=== PATIENT | female | born 1970 | race Caucasian/White ===

== ENCOUNTER 2017-01-30 15:11 | Emergency (ER) | payer OTHER ==
--- NOTE | 2017-01-30 17:54 | DIAGNOSTIC IMAGING REPORT ---
PROCEDURE: CT ABD/PELVIS WITH CONTRAST CLINICAL INDICATION: Right lower quadrant pain. Initial encounter. TECHNIQUE: 100 ml of Isovue 300 were injected intravenously and axial images were obtained of the entire abdomen and pelvis with sagittal and coronal reformations. COMPARISON: None. FINDINGS: ABDOMEN: 3 mm peripheral nodule in each lower lobe. Heart size is normal. Enlarged liver (26 cm) with diffuse steatosis. Gallbladder, pancreas, spleen, adrenal glands and kidneys are unremarkable. Normal abdominal aorta. Mid small bowel 9 mm lipoma. Nonspecific bowel gas pattern. PELVIS: Normal appendix. Mild sigmoid diverticulosis. Uterus, adnexa and bladder are normal. No pelvic mass, inflammatory changes or free fluid. Mild degenerative changes of the spine. IMPRESSION: 1. Normal appendix 2. Hepatomegaly and steatosis 3. Mid small bowel lipoma 4. Mild sigmoid diverticulosis 5. Results discussed with RALF Guerrero All CT scans at this facility use dose modulation, iterative reconstruction, and/or weight-based dosing when appropriate to reduce radiation dose to as low as reasonably achievable.
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
--- NOTE | 2017-01-30 18:02 | ED ORDER SUMMARY ---
..... Patient: ELIZABETH SAENZ OrderSheet [facility] VisitID: [id number] [address] [place] [address] 46y, F Registration Date/Time: 01/30/2017 ORDER SHEET Weight: 99.7 kg (stated) Allergies: Penicillin, Sulfa Antibiotics GENERAL ORDERS: CBC w Diff Urgent (15:40 01/30/2017 EKoroleva P.A.-C) (Ack 15:42 KHoerner) (16:09 EHassan R.N.) CMP Urgent (15:40 01/30/2017 EKoroleva P.A.-C) (Ack 15:42 KHoerner) (16:09 EHassan R.N.) UA-Culture if indicated Urgent (15:40 01/30/2017 EKoroleva P.A.-C) (Ack 15:42 KHoerner) (16:09 EHassan R.N.) Lipase Urgent (15:40 01/30/2017 EKoroleva P.A.-C) (Ack 15:42 KHoerner) (16:09 EHassan R.N.) Urine Urgent (15:40 01/30/2017 EKoroleva P.A.-C) (Ack 15:42 KHoerner) (16:09 EHassan R.N.) CT Abd/Pel w Cont (Yes) (N/A) Urgent (17:23 01/30/2017 EKoroleva P.A.-C) (17:34 DMaziarka R.N.) MEDICATION ORDERS: Insulin Reg Subcut 4 units (HIGH ALERT MEDICATION, NOW) (17:57 01/30/2017 EKoroleva P.A.-C) (18:24 EHassan R.N.) IV FLUIDS: IV NS : initial bolus 1000 mL (1000 mL/hr), then 1000 mL/hr for X1 (NOW); Asa (15:38 01/30/2017 EKoroleva P.A.-C) (16:09 EHassan R.N.) Dilaudid IV 0.5 mg (may repeat in 10 mins if pain persists order is for 1 mg) (15:39 01/30/2017 Mikhail Bella) (16:09 Harshil Glover) ORDER SHEET NOTES: [Electronically signed by Lorna Steven P.A.-C (18:17 01/30/2017)] [Electronically signed by Danette Cheema R.N. (18:27 01/30/2017)] [Electronically locked/signed by Danette Cheema R.N. (18:27 01/30/2017)]
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
--- NOTE | 2017-01-30 18:02 | ED ORDER SUMMARY ---
..... Patient: ELIZABETH SAENZ OrderSheet [facility] VisitID: [id number] [address] [place] [address] 46y, F Registration Date/Time: 01/30/2017 ORDER SHEET Weight: 99.7 kg (stated) Allergies: Penicillin, Sulfa Antibiotics GENERAL ORDERS: CBC w Diff Urgent (15:40 01/30/2017 EKoroleva P.A.-C) (Ack 15:42 KHoerner) (16:09 EHassan R.N.) CMP Urgent (15:40 01/30/2017 EKoroleva P.A.-C) (Ack 15:42 KHoerner) (16:09 EHassan R.N.) UA-Culture if indicated Urgent (15:40 01/30/2017 EKoroleva P.A.-C) (Ack 15:42 KHoerner) (16:09 EHassan R.N.) Lipase Urgent (15:40 01/30/2017 EKoroleva P.A.-C) (Ack 15:42 KHoerner) (16:09 EHassan R.N.) Urine Urgent (15:40 01/30/2017 EKoroleva P.A.-C) (Ack 15:42 KHoerner) (16:09 EHassan R.N.) CT Abd/Pel w Cont (Yes) (N/A) Urgent (17:23 01/30/2017 EKoroleva P.A.-C) (17:34 DMaziarka R.N.) MEDICATION ORDERS: Insulin Reg Subcut 4 units (HIGH ALERT MEDICATION, NOW) (17:57 01/30/2017 EKoroleva P.A.-C) (18:24 EHassan R.N.) IV FLUIDS: IV NS : initial bolus 1000 mL (1000 mL/hr), then 1000 mL/hr for X1 (NOW); Asa (15:38 01/30/2017 EKoroleva P.A.-C) (16:09 EHassan R.N.) Dilaudid IV 0.5 mg (may repeat in 10 mins if pain persists order is for 1 mg) (15:39 01/30/2017 Mikhail Bella) (16:09 Harshil Glover) ORDER SHEET NOTES: [Electronically signed by Lorna Steven P.A.-C (18:17 01/30/2017)] [Electronically signed by Danette Cheema R.N. (18:27 01/30/2017)] [Electronically locked/signed by Danette Cheema R.N. (18:27 01/30/2017)]
--- NOTE | 2017-01-30 18:28 | ED DISCHARGE INSTRUCTIONS ---
Patient: ELIZABETH SAENZ General Instructions [facility] VisitID: [id number] [place] [address] 46y, F Registration Date/Time: 01/30/2017 Type 2 diabetes with hyperglycemia. No diabetic ketoacidosis or retinopathy, neuropathy, dermopathy or nephropathy. New onset type 2 diabetes with hyperglycemia. No coma. INSTRUCTIONS Rest. Drink plenty of fluids. Prescription Medications: Metformin 500 mg: Take 1 orally every 12 hours. Dispense thirty (30). No refills. (start on the 12th) OTC Medications: Take acetaminophen (Tylenol, Datril, etc.) and ibuprofen (Advil, Nuprin, etc.) according to label instructions. Available over the counter. Follow-up: Follow up with your doctor in three days. Understanding of the discharge instructions verbalized by patient. ADDITIONAL INFORMATION Diabetes with High Blood Sugar You have been treated for high blood sugar (hyperglycemia). This may be becauseof an infection or other illness;eating too many sweets or starches ; not taking enough insulin. Home care High blood sugar may cause symptoms that you can learn to recognize, such as these: If you feel like your blood sugar may be too high, measure it using a blood or urine test. If it is above your usual range, use the "sliding scale"rRegular insulin dose your doctor gave you to correct this. If no "sliding scale" orders were given, contact your doctor for further advice. If your blood sugar is over 300, and you can't reach your doctor, go to the hospital emergency room. Monitor and write down your blood sugars - and insulin dose, if you take insulin - atleast twice a day. Do this before breakfast and before dinner. Do this for the next 3 to 5 days. Follow-up care Follow up with your health care provderduring the next week to review your blood sugar records. You will find out if you need to adjust your dose of insulin or other medicine for blood sugar. When to seek medical care Get prompt medical attention if either of these occur: High blood sugar.Symptoms are frequent urination, feeling dizzy, thirst, headache, nausea or vomiting, abdominal pain, and drowsiness or loss of consciousness. Low blood sugar. Symptoms are fatigue, headache, shakes, excess sweating, hunger, anxiety, reduced vision, drowsiness, weakness, confusion or loss of consciousness, and seizure. Diabetes (General Information) Cells of the body need glucose (sugar) for fuel. Insulin is the hormone in the body that lets glucose move from the blood into the cells. Diabetes is a chronic health condition where the body is not able to produce enough insulin, or does not respond well to its own insulin. Because the glucose in the blood cannot get into the cells, it builds up in the blood causing high blood sugar (hyperglycemia). Your actual blood sugar level is a result of the balance between several factors. These include what kind of food you eat and how much of it you eat, how much exercise you get, and the amount of insulin present in your body. Eating too much of the wrong kinds of food or not taking diabetes medicine on time can cause high blood sugar. Infections can cause high blood sugar even if you are taking medicines correctly. Missing meals, not eating enough food, or taking too much diabetes medicine can lead to low blood sugar. Untreated over long periods of time, diabetes can cause serious problems such as heart disease, stroke, kidney failure, blindness, nerve pain or loss of feeling in the legs and feet, and gangrene of the feet. With good treatment keeping your blood sugar under control, you can prevent or delay the complications of diabetes. Normal blood sugar levels are 70-130 one to two hours before a meal and not more than 180 two hours after a meal. Home Care: Follow your prescribed diabetic diet and take insulin or oral diabetic medicine exactly as ordered. Monitor blood sugars as advised. Keep a log of your results. This will help your doctor adjust your medicines to keep your blood sugar under control. Try to achieve your ideal weight. Proper diet and exercise can reduce or eliminate the need to take diabetes medicine. Avoid tobacco smoking, which worsens the effect of diabetes on your circulation. The risk of a heart attack in a diabetic is 15 times more likely if you smoke. Pay attention to good foot care. If you have lost feeling in your feet you may not notice an injury or infection. Check your feet and between your toes at least once a week. Wear a medical alert bracelet or carry a card in your wallet explaining that you are diabetic. In the event that you become very ill and are unable to give this information, it will help medical personnel provide proper care. If you become sick with a cold, the flu, or an infection (viral or bacterial), please do the following: Review your diabetes sick plan and contact your physician as instructed. You may have been advised to call the doctor immediately if: Your blood sugar is above 240 while taking your diabetes medication Your urine ketone levels are above normal or showing high levels of ketones You have been vomiting more than 6 hours You experience difficulty to trouble breathing You develop a high fever or you have had a fever for a couple of days and you aren't getting better You become light-headed and more sleepy than usual Keep taking your oral diabetes medicine (pills) even if you have been vomiting and feeling sick. Contact your doctor immediately for advice because you may need insulin to lower your blood sugar until you recover from your illness. Keep taking your insulin, even if you have been vomiting and feeling sick. Call your doctor immediately and ask if a temporary adjustment of your insulin dose is needed based on your blood glucose (sugar) results. Check your blood sugar every 2 to 4 hours, or at least 4 times a day. Check your keytones often. If you are vomiting and having diarrhea, monitor them more frequently. Don't skip meals. Try to eat small meals on a regular schedule, even if you do not have an appetite. Drink water or other calorie-free, non-caffeinated liquids to stay hydrated. If you are nauseated or vomiting, drink small amounts (sips, a teaspoon) every 5 minutes. To prevent dehydration, try to drink a cup or 8 ounces of fluids every hour while you are awake. Always carry a source of fast-acting sugar with you in case you get symptoms of low blood sugar (below 70). At the first sign of low blood sugar, eat or drink 15 to 20 grams of fast-acting sugar to raise your blood sugar. Examples include: 3 to 4 glucose tablets (found at most drugstores) 4 ounces (1/2 cup) of regular (not diet) softdrinks 4 ounces (1/2 cup) of any fruit juice 8 ounces (1 cup) of milk 5 to 6 pieces of hard candy 1 tablespoon of honey Check your blood sugar 15 minutes after treating yourself. If it is still low (below 70), take another 15 to 20 grams of fast-acting sugar. Test again in 15 minutes. If it returns to normal (70 or above), eat a snack or meal to keep your blood sugar in a safe range. If it remains low, call your doctor or go to an emergency room. Follow Up with your doctor as advised by our staff. For more information, contact the [employer]. www.diabetes.org or 127-730-4098. Get Prompt Medical Attention if any of the following occur: HIGH BLOOD SUGAR: frequent urination, dizziness, drowsiness, thirst, headache, nausea or vomiting, abdominal pain, vision changes, fast breathing, confusion or loss of consciousness LOW BLOOD SUGAR: fatigue, headache, shakes, excess sweating, hunger, feeling anxious or restless, vision changes, drowsiness, weakness, confusion or loss of consciousness Chest pain or shortness of breath Dizziness or fainting Weakness of an arm or leg or one side of the face Trouble with speech or vision Diabetes with High Blood Sugar You have been treated for high blood sugar (hyperglycemia). This may be becauseof an infection or other illness;eating too many sweets or starches ; not taking enough insulin. Home care High blood sugar may cause symptoms that you can learn to recognize, such as these: If you feel like your blood sugar may be too high, measure it using a blood or urine test. If it is above your usual range, use the "sliding scale"rRegular insulin dose your doctor gave you to correct this. If no "sliding scale" orders were given, contact your doctor for further advice. If your blood sugar is over 300, and you can't reach your doctor, go to the hospital emergency room. Monitor and write down your blood sugars - and insulin dose, if you take insulin - atleast twice a day. Do this before breakfast and before dinner. Do this for the next 3 to 5 days. Follow-up care Follow up with your health care [facility] the next week to review your blood sugar records. You will find out if you need to adjust your dose of insulin or other medicine for blood sugar. When to seek medical care Get prompt medical attention if either of these occur: High blood sugar.Symptoms are frequent urination, feeling dizzy, thirst, headache, nausea or vomiting, abdominal pain, and drowsiness or loss of consciousness. Low blood sugar. Symptoms are fatigue, headache, shakes, excess sweating, hunger, anxiety, reduced vision, drowsiness, weakness, confusion or loss of consciousness, and seizure. Diabetes (General Information) Cells of the body need glucose (sugar) for fuel. Insulin is the hormone in the body that lets glucose move from the blood into the cells. Diabetes is a chronic health condition where the body is not able to produce enough insulin, or does not respond well to its own insulin. Because the glucose in the blood cannot get into the cells, it builds up in the blood causing high blood sugar (hyperglycemia). Your actual blood sugar level is a result of the balance between several factors. These include what kind of food you eat and how much of it you eat, how much exercise you get, and the amount of insulin present in your body. Eating too much of the wrong kinds of food or not taking diabetes medicine on time can cause high blood sugar. Infections can cause high blood sugar even if you are taking medicines correctly. Missing meals, not eating enough food, or taking too much diabetes medicine can lead to low blood sugar. Untreated over long periods of time, diabetes can cause serious problems such as heart disease, stroke, kidney failure, blindness, nerve pain or loss of feeling in the legs and feet, and gangrene of the feet. With good treatment keeping your blood sugar under control, you can prevent or delay the complications of diabetes. Normal blood sugar levels are 70-130 one to two hours before a meal and not more than 180 two hours after a meal. Home Care: Follow your prescribed diabetic diet and take insulin or oral diabetic medicine exactly as ordered. Monitor blood sugars as advised. Keep a log of your results. This will help your doctor adjust your medicines to keep your blood sugar under control. Try to achieve your ideal weight. Proper diet and exercise can reduce or eliminate the need to take diabetes medicine. Avoid tobacco smoking, which worsens the effect of diabetes on your circulation. The risk of a heart attack in a diabetic is 15 times more likely if you smoke. Pay attention to good foot care. If you have lost feeling in your feet you may not notice an injury or infection. Check your feet and between your toes at least once a week. Wear a medical alert bracelet or carry a card in your wallet explaining that you are diabetic. In the event that you become very ill and are unable to give this information, it will help medical personnel provide proper care. If you become sick with a cold, the flu, or an infection (viral or bacterial), please do the following: Review your diabetes sick plan and contact your physician as instructed. You may have been advised to call the doctor immediately if: Your blood sugar is above 240 while taking your diabetes medication Your urine ketone levels are above normal or showing high levels of ketones You have been vomiting more than 6 hours You experience difficulty to trouble breathing You develop a high fever or you have had a fever for a couple of days and you aren't getting better You become light-headed and more sleepy than usual Keep taking your oral diabetes medicine (pills) even if you have been vomiting and feeling sick. Contact your doctor immediately for advice because you may need insulin to lower your blood sugar until you recover from your illness. Keep taking your insulin, even if you have been vomiting and feeling sick. Call your doctor immediately and ask if a temporary adjustment of your insulin dose is needed based on your blood glucose (sugar) results. Check your blood sugar every 2 to 4 hours, or at least 4 times a day. Check your keytones often. If you are vomiting and having diarrhea, monitor them more frequently. Don't skip meals. Try to eat small meals on a regular schedule, even if you do not have an appetite. Drink water or other calorie-free, non-caffeinated liquids to stay hydrated. If you are nauseated or vomiting, drink small amounts (sips, a teaspoon) every 5 minutes. To prevent dehydration, try to drink a cup or 8 ounces of fluids every hour while you are awake. Always carry a source of fast-acting sugar with you in case you get symptoms of low blood sugar (below 70). At the first sign of low blood sugar, eat or drink 15 to 20 grams of fast-acting sugar to raise your blood sugar. Examples include: 3 to 4 glucose tablets (found at most drugstores) 4 ounces (1/2 cup) of regular (not diet) softdrinks 4 ounces (1/2 cup) of any fruit juice 8 ounces (1 cup) of milk 5 to 6 pieces of hard candy 1 tablespoon of honey Check your blood sugar 15 minutes after treating yourself. If it is still low (below 70), take another 15 to 20 grams of fast-acting sugar. Test again in 15 minutes. If it returns to normal (70 or above), eat a snack or meal to keep your blood sugar in a safe range. If it remains low, call your doctor or go to an emergency room. Follow Up with your doctor as advised by our staff. For more information, contact the [employer]. www.diabetes.org or 097-112-6373. Get Prompt Medical Attention if any of the following occur: HIGH BLOOD SUGAR: frequent urination, dizziness, drowsiness, thirst, headache, nausea or vomiting, abdominal pain, vision changes, fast breathing, confusion or loss of consciousness LOW BLOOD SUGAR: fatigue, headache, shakes, excess sweating, hunger, feeling anxious or restless, vision changes, drowsiness, weakness, confusion or loss of consciousness Chest pain or shortness of breath Dizziness or fainting Weakness of an arm or leg or one side of the face Trouble with speech or vision [place] Diet A bland diet is used for patients with an upset stomach. It consists of foods that are mild and easy to digest. It is better to eat small frequent meals rather than three large meals a day. BEVERAGES OK: Fruit juices, non-caffeinated teas and coffee, non-carbonated king AVOID: Carbonated beverage, caffeinated tea and coffee, all alcoholic beverages BREAD OK: Refined white, wheat or rye bread, gabino or soda crackers, Maile toast, plain rolls, bagels AVOID: Whole-grain bread CEREAL OK: Refined cereals: cooked or ready to eat AVOID: Whole grain cereals and granola, or those containing bran, seeds or nuts DESSERTS OK: Peanut butter and all others except those to "avoid" AVOID: Chocolate, cocoa, coconut, popcorn, nuts, seeds, jam, marmalade FRUITS OK: Canned, cooked, frozen or fresh fruits without seeds or tough skin AVOID: Olives, skin and seeds of fruit MEATS OK: All fresh or preserved meat, fish and fowl AVOID: Any that are prepared with those spices to "avoid" CHEESE & EGGS OK: Eggs, cottage cheese, cream cheese, other cheeses AVOID: All cheeses made with those spices to "avoid" POTATOES & PASTA OK: Potato, rice, macaroni, noodles, spaghetti AVOID: None SOUPS OK: All soups without heavy seasoning AVOID: Soups made with those spices to "avoid" VEGETABLES OK: Canned, cooked, fresh or frozen mildly flavored vegetables without seeds, skins or coarse fiber AVOID: Vegetables prepared with those spices to "avoid"; skin and seeds of vegetables and those with coarse fiber SPICES OK: Salt, lemon and [employer] juice, vinegar, all extracts, [place], cinnamon, thyme, mace, allspice, paprika AVOID: [place] powder, cloves, pepper, seed spices, garlic, gravy pickles, highly seasoned salad dressings Clear Liquid Diet Clear liquids are any liquid that you can see through as well as those that are very easy to digest. This is used while the body is recovering from irritation or infection of the stomach or intestinal tract. It may also be used before special procedures or surgery. This diet is to be used no more than three days. You may include the following items. Adults Adults should drink a total of 23 quarts of liquid per day. It may be easier to drink small frequent servings rather than a few large ones. Liquids can include: Fruit juices.Strained orange juice or lemonade (no pulp), apple, grape and cranberry juice, clear fruit drinks, sports drinks Beverages.Sport drinks, sodas, mineral water (plain or flavored), tea, black coffee, liquid gelatin (add twice the recommended amount of water) Soups.Clear broth, consomm, bouillon Desserts.Plain gelatin, popsicles, fruit juice bars Children Over 2 years old The following liquids are acceptable for children over age 2: Fruit juices.Strained orange juice or lemonade (no pulp), apple, grape and cranberry juice, clear fruit drinks Beverages. Sports drinks, sodas, mineral water (plain or flavored), tea, liquid gelatin (add twice the recommended amount of water) Soups. Clear broth, consomm, bouillon Desserts. Plain gelatin, popsicles, fruit juice bars Children under 2 years old Oral rehydration fluids such are available at drug stores and most grocery stores without a prescription. You have been given the following additional information: Diabetic Hyperglycemia Diabetes, General Info Diabetic Hyperglycemia Diabetes, General Info Diet, [place] (Adult) Diet, Clear Liquid Rest. (Electronically signed by Lorna Steven P.A.-C 01/30/2017 18:17)
--- NOTE | 2017-01-30 18:28 | ED MAR SUMMARY ---
..... Medication Administration Record [facility] [address] [place] [address] Patient: ELIZABETH SAENZ Visit ID: [id number] 46y, F Weight: 99.7 kg Height/Length: 67 in BMI: 34.5 ALLERGIES: Penicillin, Sulfa Antibiotics Start 16:09 01/30/2017 Danette Cheema R.N., Stop 18:20 01/30/2017 Danette Cheema R.N. Medication Administered: IV NS (SALINE), Dose: IV Fluids over 1 hour(s), Rate: 1000 mL/hr, Dispensed: 1000 mL bag, Site: #1 left AC. Medication Ordered: IV NS : initial bolus 1000 mL (1000 mL/hr), then 1000 mL/hr for X1 (NOW); Asa. Given 16:01/30/2017 Danette Cheema R.N. Medication Administered: DILAUDID [IVP] (HYDROMORPHONE HCL PF), Dose: 0.5 mg IVP over 1 minute(s), Site: #1 left AC. Medication Ordered: Dilaudid IV 0.5 mg (may repeat in 10 mins if pain persists order is for 1 mg). Given 18:01/30/2017 Danette Cheema R.N. Medication Administered: INSULIN REG [SUBCUTANEOUS], Dose: 4 unit Subcutaneous. Medication Ordered: Insulin Reg Subcut 4 units (HIGH ALERT MEDICATION, NOW).
--- NOTE | 2017-01-30 18:28 | ED MAR SUMMARY ---
..... Medication Administration Record [facility] [address] [place] [address] Patient: ELIZABETH SAENZ Visit ID: [id number] 46y, F Weight: 99.7 kg Height/Length: 67 in BMI: 34.5 ALLERGIES: Penicillin, Sulfa Antibiotics Start 16:09 01/30/2017 Danette Cheema R.N., Stop 18:20 01/30/2017 Danette Cheema R.N. Medication Administered: IV NS (SALINE), Dose: IV Fluids over 1 hour(s), Rate: 1000 mL/hr, Dispensed: 1000 mL bag, Site: #1 left AC. Medication Ordered: IV NS : initial bolus 1000 mL (1000 mL/hr), then 1000 mL/hr for X1 (NOW); Asa. Given 16:01/30/2017 Dnaette Cheema R.N. Medication Administered: DILAUDID [IVP] (HYDROMORPHONE HCL PF), Dose: 0.5 mg IVP over 1 minute(s), Site: #1 left AC. Medication Ordered: Dilaudid IV 0.5 mg (may repeat in 10 mins if pain persists order is for 1 mg). Given 18:01/30/2017 Danette Cheema R.N. Medication Administered: INSULIN REG [SUBCUTANEOUS], Dose: 4 unit Subcutaneous. Medication Ordered: Insulin Reg Subcut 4 units (HIGH ALERT MEDICATION, NOW).
--- NOTE | 2017-01-30 18:28 | ED MED RECONCILIATION SUMMARY ---
Patient: ELIZABETH SAENZ Medication Reconciliation Report [facility] VisitID: [id number] [address] [place] [address] 46y, F Registration Date/Time: 01/30/2017 Weight: 99.7 kg Height/Length: 67 in. BMI: 34.5 ALLERGIES: Penicillin, Sulfa Antibiotics The patient's Home Medications are listed below: THE FOLLOWING MEDICATIONS NEED TO BE RECONCILED: Albuterol Sulfate Inhalation Aleve Oral ClonazePAM Oral Methocarbamol Oral Migraine med prn Mirapex Oral OxyCODONE HCl Oral Propranolol HCl ER Oral Sudafed Oral Synthroid Oral Topiramate Oral Zolpidem Tartrate Oral The source(s) of the original Home Medication information: patient The following Medications were given to the patient in the Emergency Department: IV NS IV Fluids bolus 0, then 1000 mL/hr, administered: 01/30/2017 4:09:00 PM Dilaudid [IVP] IVP 0.5 mg, administered: 01/30/2017 4:09:00 PM Insulin Reg [Subcutaneous] Subcutaneous 4 unit, administered: 01/30/2017 6:09:00 PM The following Medications were prescribed to the patient: Take acetaminophen (Tylenol, Datril, etc.) and ibuprofen (Advil, Nuprin, etc.) according to label instructions. Available over the counter. -- Lorna Steven, P.A.-C Metformin 500 mg: Take 1 orally every 12 hours. Dispense thirty (30). No refills.(start on the ) -- Lorna Steven, P.A.-C
--- NOTE | 2017-01-30 18:28 | ED MED RECONCILIATION SUMMARY ---
Patient: ELIZABETH SAENZ Medication Reconciliation Report [facility] VisitID: [id number] [address] [place] [address] 46y, F Registration Date/Time: 01/30/2017 Weight: 99.7 kg Height/Length: 67 in. BMI: 34.5 ALLERGIES: Penicillin, Sulfa Antibiotics The patient's Home Medications are listed below: THE FOLLOWING MEDICATIONS NEED TO BE RECONCILED: Albuterol Sulfate Inhalation Aleve Oral ClonazePAM Oral Methocarbamol Oral Migraine med prn Mirapex Oral OxyCODONE HCl Oral Propranolol HCl ER Oral Sudafed Oral Synthroid Oral Topiramate Oral Zolpidem Tartrate Oral The source(s) of the original Home Medication information: patient The following Medications were given to the patient in the Emergency Department: IV NS IV Fluids bolus 0, then 1000 mL/hr, administered: 01/30/2017 4:09:00 PM Dilaudid [IVP] IVP 0.5 mg, administered: 01/30/2017 4:09:00 PM Insulin Reg [Subcutaneous] Subcutaneous 4 unit, administered: 01/30/2017 6:09:00 PM The following Medications were prescribed to the patient: Take acetaminophen (Tylenol, Datril, etc.) and ibuprofen (Advil, Nuprin, etc.) according to label instructions. Available over the counter. -- Lorna Steven, P.A.-C Metformin 500 mg: Take 1 orally every 12 hours. Dispense thirty (30). No refills.(start on the ) -- Lorna Steven, P.A.-C
== END 2017-01-30 18:20 | disposition home or self-care (01) ==
LOC: ED SRH 15:11
DX: E11.65 Type 2 diabetes mellitus with hyperglycemia (principal); R10.31 Right lower quadrant pain; Z88.1 Allergy status to other antibiotic agents; Z88.0 Allergy status to penicillin
CPT/HCPCS: 90004; 90100; 92235; 93070; 95059